=== PATIENT | female | born 1965 ===

== ENCOUNTER → 2018-03-09 | Outpatient (REF) | payer OTHER ==
[2018-03-09 15:48] LABS: FREE T4 1.38 NG/DL (0.76-1.46)
== END ==
LOC: M LABDRAW1 13:19
DX: E03.9 Hypothyroidism, unspecified (principal)

== ENCOUNTER → 2018-11-12 | Outpatient (REF) | payer OTHER ==
[2018-11-12 13:16] LABS: FREE T4 1.38 NG/DL (0.76-1.46); THYROID STIMULATING HORMONE < 0.005 uIU/ML (0.358-3.740)
== END ==
LOC: M LABDRAW1 11:50
PROVIDERS: ATTEND Nurse Practitioner Family
DX: E03.9 Hypothyroidism, unspecified (principal)